=== PATIENT | male | born 1980 | race Two or more races ===

== ENCOUNTER 2025-08-26 20:26 | Emergency (ER) | payer OTHER ==
[~2025-08-26] VITALS: Ht 175.3 cm; Wt 83.9 kg
[2025-08-26] MEDS ORDERED: NIFEDIPINE20 MG PO (20:45)
[2025-08-26] MEDS ORDERED: ALDACTONE50 MG PO (20:45)
[2025-08-26] MEDS ORDERED: DOXAZOSIN MESYLA4 MG PO (20:45)
[2025-08-26] MEDS ORDERED: COZAAR100 MG PO (20:46)
[2025-08-26] MEDS ORDERED: KETOROLAC TROMETHAMINE 30 MG VIAL IV ONE (21:45)
[2025-08-26] MEDS ORDERED: DEXAMETHASONE SODIUM PHOSPHATE 4 MG/ML VIAL IV ONE (21:45)
[2025-08-26] MEDS ORDERED: ONDANSETRON HCL 2 MG/ML VIAL IV ONE (21:45)
[2025-08-26] MEDS ORDERED: FAMOTIDINE/PF 20 MG/2 ML VIAL IV ONE (21:45)
[2025-08-26] MEDS ORDERED: DEXAMETHASONE SODIUM PHOSPHATE 4 MG/ML VIAL ONE (21:47)
[2025-08-26] MEDS ORDERED: ONDANSETRON HCL 2 MG/ML VIAL ONE (21:47)
[2025-08-26] MEDS ORDERED: KETOROLAC TROMETHAMINE 30 MG VIAL ONE (21:47)
[2025-08-26] MEDS ORDERED: FAMOTIDINE/PF 20 MG/2 ML VIAL ONE (21:48)
[2025-08-26 22:19] LABS: BASO % 0.9 % (0.1-1.2); EOS # 0.05 (0.04-0.54); EOS % 0.9 % (0.7-7.0); LYMPH # 0.95 (1.18-3.74); LYMPH % 17.8 % (19.3-53.1); MEAN PLATELET VOLUME 11.60 fl (9.4-12.4); MONO # 0.34 (0.24-0.82); MONO % 6.4 % (4.7-12.5); NEUT # 3.94 (1.56-6.13); NEUT % 74.0 % (34.0-71.1); RED CELL DISTRIBUTION WIDTH 12.4 % (11.6-14.4)
[2025-08-26 22:25] LABS: ERYTHROCYTE SEDIMENTATION RATE 10 mm/hr (0-15)
[2025-08-26 22:47] LABS: INR 1.04
[2025-08-26 22:52] LABS: ALT/SGPT 22 U/L (12-78); AST/SGOT 11 U/L (15-37); BILIRUBIN TOTAL 0.36 mg/dL (0.3-1.2); BUN CREA RATIO 14 (7.0-25.0); CKMB 1.2 NG/ML (0.5-3.6); CREATININE SERUM 1.60 mg/dL (0.70-1.30); GFR 47.41; GLOBULINA 3.1 G/DL (2.4-3.5); GLUCOSE FASTING 103 mg/dL (65-100); OSMOLALITY SERUM 292 MOSM/KG (275-295); PHOSPHOKINASE CREATININE 108 U/L (39-308)
[2025-08-26 23:31] LABS: URINE APPEARANCE Clear; URINE BILIRRUBIN Negative (NEGATIVE); URINE BLOOD Negative; URINE COLOR Yellow; URINE GLUCOSE Negative (NEGATIVE); URINE KETONE Trace (NEGATIVE); URINE LEUKOCYTE Trace; URINE NITRATE Negative; URINE PROTEIN Trace (NEGATIVE); URINE UROBILINOGEN 1.0 E.U./dl
[2025-08-26 23:35] LABS: URINE BACTERIA 33.5 uL (0.0-1933); URINE RBC 2.9 uL (0.0-20.8); URINE WBC 20.2 uL (0.0-23.2)
[2025-08-26 23:39] LABS: URINE CAST 0.14 uL (0.0-1.40); URINE EPITHELIAL CELLS 1.2 uL (0.0-38.8)
[2025-08-27] MEDS ORDERED: BUSPIRONE HCL10 MG PO (02:27)
[2025-08-27] MEDS ORDERED: VISTARIL50 MG/ML IM (02:27)
== END 2025-08-27 02:54 | disposition home or self-care (01) ==
LOC: ER 20:27
DX: F41.0 Panic disorder [episodic paroxysmal anxiety] (principal); R07.9 Chest pain, unspecified; F41.8 Other specified anxiety disorders; R20.0 Anesthesia of skin; I10 Essential (primary) hypertension; J45.909 Unspecified asthma, uncomplicated; E83.51 Hypocalcemia